=== PATIENT | female | born 1965 | race Caucasian/White ===

== ENCOUNTER → 2018-01-06 | Outpatient (CLI) | payer OTHER ==
[~2018-01-06] MED LIST: ACYC400 PO; ASPI325 PO; CLOBET30L TOP; CLOT1SO TOP; CYCL10 PO; HYDR1TAB94 PO; LISHYD2025 PO; LISI20 PO; NAPR500EC PO; Percocet 5-3251 EACH PO; TRAM50 PO; Tylenol325 MG PO
== END | disposition home or self-care (01) ==
LOC: LAB EV 16:47
DX: L08.9 Local infection of the skin and subcutaneous tissue, unspecified (principal)
CPT/HCPCS: 87070; 87075; 87077; 87147; 87186; 87205